=== PATIENT | female | born 1955 ===

== ENCOUNTER 2019-02-01 17:48 | Inpatient (IN) | payer OTHER | END 2019-02-02 19:15 | disposition home or self-care (01) | DRG 69 | LOC: ED 17:48 → 4A 21:42 | PROVIDERS: ADMIT Internal Medicine Geriatric Medicine | CPT/HCPCS: 36415; 70450; 70544; 70551; 80048; 82962; 84484; 85025; 85610; 85670; 85730; 93005; 93010; 93306; 93880; G0378; J1644 ==